=== PATIENT | female | born 1975 | race African-American/Black ===

== ENCOUNTER 2016-07-28 10:07 | Emergency (ER) ==
[2016-07-28 13:52] VITALS: BP 151/99
[2016-07-28] MEDS ORDERED: HYZAAR 100/12.5 MG TAB PO ONE (14:13)
--- NOTE | 2016-07-28 14:14 | PROVIDER DOCUMENTATION ---
HPI-Rash/Wound/ReCheck - General Chief Complaint: Allergic Reaction Stated Complaint: POSS ALLERGIC REACTION/ANXIETY Source: patient Allergies/Adverse Reactions: Allergies Allergy/AdvReac Type Severity Reaction Status Date / Time aripiprazole [From Abilify] Allergy RASH Verified 07/28/16 14:09 bupropion Allergy RASH Verified 07/28/16 14:09 antidepressents Allergy RASH Uncoded 07/28/16 14:09 - History of Present Illness-Dermatology Nature of Presenting Problem: 41 yo F presents to ED with cc of rash between breasts and swollen tongue, which she believes to be an allergic reaction to medication lisinopril. [facility] and was instructed to quit taking medication and to take benadryl. Pt states that the symptoms have largely resolved. While in ED waiting room, pt became agitated and said she was going to leave. She claimed she was having an anxiety attack. Pt issues resolved once ED physician saw her. Location: reports: chest Severity: reports: mild Onset/Duration: reports: abrupt Timing: reports: gone now Context/Associated Symptoms: reports: denies symptoms Identifiable cause?: Yes (Medication) Exposure: reports: new medication Modifying Factors: improves with: antihistamine Locality of Occurance: Home Recently seen or treated by another doctor?: Yes ([facility], which instructed her to discontinue meds and take Benadryl) Review of Systems - Adult - REVIEW OF SYSTEMS - ADULT Constitutional: reports: no symptoms reported. denies: chills, fever Eyes: reports: no symptoms reported. denies: decreased vision, eye pain Ears, Nose, Mouth & Throat: reports: no symptoms reported. denies: ear pain, nose pain Cardiovascular: reports: no symptoms reported. denies: chest pain, heart murmur Respiratory: reports: no symptoms reported. denies: cough, dyspnea on exertion Gastrointestinal: reports: no symptoms reported. denies: abdominal pain, hematemesis Genitourinary: reports: no symptoms reported. denies: dysuria, frequency Musculoskeletal: reports: no symptoms reported. denies: joint pain, joint swelling Integumentary: reports: rash (between breasts) Neurological: reports: no symptoms reported. denies: ataxia, dizziness/vertigo Psychiatric: reports: anxiety (Claims came on while in waiting room; has hx) Endocrine: reports: no symptoms reported. denies: cold intolerance, heat intolerance Hematologic/Lymphatic: reports: no symptoms reported Allergic/Immunologic: reports: allergic reactions, other (swollen tongue) All Other Systems: Reviewed and Negative Past History - Adult - PAST MEDICAL HISTORY-ADULT Review of Records: reports: Old Records Reviewed, Nursing Assessment Review, Medications Reviewed Cardiovascular: reports: HTN Psychiatric: reports: anxiety Other Conditions: reports: eczema - PRIOR SURGERIES/PROCEDURES Surgical/Procedure History: reports: hysterectomy (2 hysterectomy surgeries), orthopedic (extremity) (R knee scopes 2x ) - IMMUNIZATION STATUS Childhood Immunizations: See Nurse Assessment Flu Vaccine: See Nurse Assessment - SOCIAL HISTORY Smoking: denies Substance Use: none/never Alcohol Use Frequency: never Physical Exam-General - PHYSICAL EXAM-ADULT Initial Vital Signs Reviewed: Yes - CONSTITUTIONAL General Appearance: appears well, alert, no apparent distress - EYES Eyes: PERRL/EOMI, pink conjunctivae - HEAD, EARS, NOSE, MOUTH & THROAT HENMT: normocephalic/atraumatic, moist mucous membranes - NECK Neck: non-tender, full range of motion, normal inspection - RESPIRATORY Respiratory: chest non-tender, no accessory muscle use - CARDIOVASCULAR Cardiovascular: normal peripheral pulses, regular rate, rhythm - GASTROINTESTINAL (ABDOMEN) Abdominal Exam: non tender, soft - LYMPHATIC Lymphatic: no adenopathy - MUSCULOSKELETAL Back Exam: normal inspection, no vertebral tenderness Extremity: normal range of motion, non-tender, normal gait - SKIN Integumentary: normal color, normal turgor - NEUROLOGIC Neurologic: grossly normal, no motor/sensory deficits - PSYCHIATRIC Psych/Mental Status: normal mood/affect, normal thought content, normal thought process, oriented x 3 Progress - EKG 1 Time of EKG reading by physician:: 14:09 EKG Read and Signed by:: Berry Phillips EKG Interpretation (*Must complete 3 of following elements*): Normal Rate: 67 Rhythm: normal sinus [place]: normal QRS: normal [place] Interval: normal ST Wave: normal Departure - Departure Time of Disposition Order: 14:23 DIAGNOSIS: Allergic reaction caused by a drug Qualifiers: Encounter type: initial encounter Qualified Code(s): T78.40XA - Allergy, unspecified, initial encounter Eczema Qualifiers: Eczema type: unspecified Qualified Code(s): L30.9 - Dermatitis, unspecified Disposition: HOME 01 Certified Medical Emergency: Emergent Condition: Good Attestation - Scribe Verification/Attestation Scribe:: Sophia Helm Acting as Scribe for:: Berry Phillips Scribe documention review:: This chart was documented by a scribe and accurately reflects the service the provider performed and the decisions made by the provider. - Physician/ Mid-level Attestation Patient care was provided by Mid-level provider (ROTOR WINDER/PA):: No
--- NOTE | 2016-07-29 06:05 | EKG Report ---
Test Performed on : 07/28/2016 1:55:49 PM Test Reason : chest pain Blood Pressure : / mmHG Vent. Rate : 067 BPM Atrial Rate : 067 BPM P-R Int : 136 ms QRS Dur : 070 ms QT Int : 424 ms P-R-T Axes : 055 014 029 degrees QTc Int : 448 ms Normal sinus rhythm. Normal ECG No previous ECGs available Unconfirmed Result
== END 2016-07-28 15:06 | disposition home or self-care (01) ==
LOC: ED 10:07
DX: T78.40XA Allergy, unspecified, initial encounter (principal); L30.9 Dermatitis, unspecified; R21 Rash and other nonspecific skin eruption; I10 Essential (primary) hypertension; Z79.899 Other long term (current) drug therapy
CPT/HCPCS: 93005; 99282